=== PATIENT | female | born 1950 | race Caucasian/White ===

== ENCOUNTER 2017-01-31 05:02 | Inpatient (IN) | payer OTHER ==
[2017-01-24 12:14] LABS: HEMOGLOBIN 15.2 gm/dL (12.0-15.0); MCH 31.4 pg (26.0-34.0); MCHC 34.4 g/dL (28.0-37.0); MCV 91.3 fL (80.0-100.0); RBC 4.82 mil/uL (4.20-5.00); RDW 13.4 % (10.5-14.5); URINE BILIRUBIN NEGATIVE (Negative); URINE BLOOD NEGATIVE (Negative); URINE COLOR YELLOW; URINE GLUCOSE-RANDOM* NEGATIVE (Negative); URINE KETONES NEGATIVE (Negative); URINE LEUKOCYTES-REFLEX NEGATIVE (Negative); URINE PROTEIN (DIPSTICK) NEGATIVE (Negative); URINE SPECIFIC GRAVITY 1.015 (1.003-1.035); URINE UROBILINOGEN 0.2 E.U./dl (0.2-1.0); WBC 9.2 thou/uL (4.0-11.0)
[2017-01-24 12:20] LABS: ALBUMIN 3.9 g/dL (3.4-5.0); CALCIUM 9.2 mg/dL (8.5-10.1); CREATININE 0.9 mg/dL (0.6-1.0); POTASSIUM 4.4 mmol/L (3.5-5.1)
[2017-01-24 12:24] LABS: INR 1.1; PROTIME 11.4 Seconds (9.3-11.4)
[2017-01-31] VITALS (7 sets, daily range): BP systolic 122–155; BP diastolic 60–103
[~2017-01-31] VITALS: Ht 160 cm; Wt 86.6 kg
--- NOTE | ~2017-01-31 | EKG ---
[address] [place] [address] ELECTROCARDIOGRAM REPORT Name: KHAICAMILLA Room #: PRE [facility]#: [id number] Admission: Attend Phys: Renny Garcia MD Discharge: Date of : 48 Report #: [id number] THIS REPORT FOR: //name// [facility] Test Date: 2017-01-24 Test Time: 12:00:22 Pat Name: CAMILLA RIDLEY Department: Room: Gender: F Political Science Chair: BERNA DENNEY : 1950 Requested By: Renny Garcia Order Number: [id number] MD: Sage Devlin Measurements Intervals [place] Rate: 66 P: 56 IL: 152 QRS: 93 QRSD: 153 T: -44 QT: 461 QTc: 484 Interpretive Statements Sinus rhythm Left bundle branch block No previous ECG available for comparison Electronically Signed On 01-25-2017 7:52:34 CDT by Sage Devlin [email or web address] <ELECTRONICALLY SIGNED> By: Sage Devlin MD, [facility] 01/25/17 0752 1200 [facility] Sage Devlin MD, FACC /EPI
[~2017-01-31 05:02] MED LIST: ALDACTONE25 MG PO; CARVEDILOL25 MG PO; CENTRUM SILVER1 EAC4 PO; CO Q-10100 MG PO; FISH OIL 1,001000 M2 PO; MULTIVITAMIN PACK PO; NORCO 5-325 TA1 EACH PO; OMEGA-3 + VITA1 EAC1 PO; PERCOCET PO; PRILOSEC 20 MG20 MG PO; SERTRALINE HCL50 MG PO; TRI-EST PO; TURMERIC500 M1 PO; VITAMIN C500 M1 PO; VOLTAREN GEL 1100 G2 TOP; XANAX 0.25 MG0.25 MG PO; XARELTO10 MG PO; ZESTRIL40 MG PO; [UNRECOGNIZED DRUG - OTHER] PO
[2017-02-01 04:00] VITALS: BP 113/58
[2017-02-01 05:58] LABS: HEMATOCRIT 32.4 % (37.0-47.0); HEMOGLOBIN 11.2 gm/dL (12.0-15.0); MCH 31.2 pg (26.0-34.0); MCHC 34.6 g/dL (28.0-37.0); MCV 90.2 fL (80.0-100.0); RBC 3.59 mil/uL (4.20-5.00); RDW 13.1 % (10.5-14.5); WBC 18.4 thou/uL (4.0-11.0)
[2017-02-01 07:15] VITALS: BP 118/51
[2017-02-01 13:21] VITALS: BP 118/51
== END 2017-02-01 14:08 | disposition home or self-care (01) | DRG 470 ==
LOC: 5S 05:02 → TBA 06:56 → 5S 12:37 → 3N 16:16
PROVIDERS: Orthopaedic Surgery
PROC: 0SRD0JZ Replacement of Left Knee Joint with Synthetic Substitute, Open Approach (ICD-10-PCS; principal; 2017-01-31)
DX: M17.12 Unilateral primary osteoarthritis, left knee (principal); K21.9 Gastro-esophageal reflux disease without esophagitis; F32.9 Major depressive disorder, single episode, unspecified; I11.0 Hypertensive heart disease with heart failure; I50.9 Heart failure, unspecified; Z96.641 Presence of right artificial hip joint; E78.5 Hyperlipidemia, unspecified; E66.9 Obesity, unspecified; Z68.33 Body mass index [BMI] 33.0-33.9, adult; Z85.828 Personal history of other malignant neoplasm of skin; Z90.49 Acquired absence of other specified parts of digestive tract; Z90.710 Acquired absence of both cervix and uterus; Z88.0 Allergy status to penicillin
CPT/HCPCS: 10795; 50010; 50101; 50415; 50954; 51130; 51225; 51771; 53000; 53078; 53364; 54118; 56524; 56527; 56528; 57095; 62110; 62900; 64043; 65060; 70005

== ENCOUNTER → 2017-02-10 | Outpatient (CLI) | payer OTHER | LOC: ULTRA 14:46 | DX: M25.462 Effusion, left knee (principal); M79.89 Other specified soft tissue disorders ==

== ENCOUNTER 2019-08-29 08:01 | Inpatient (IN) | payer OTHER ==
[2019-08-15 12:46] LABS: URINE BILIRUBIN NEGATIVE (Negative); URINE BLOOD NEGATIVE (Negative); URINE CLARITY CLEAR; URINE COLOR YELLOW; URINE GLUCOSE-RANDOM* NEGATIVE (Negative); URINE KETONES NEGATIVE (Negative); URINE NITRITE-REFLEX NEGATIVE (Negative); URINE PROTEIN (DIPSTICK) NEGATIVE (Negative); URINE SPECIFIC GRAVITY 1.015 (1.005-1.035); URINE UROBILINOGEN 0.2 E.U./dl (0.2-1.0)
[2019-08-15 12:50] LABS: URINE LEUKOCYTES-REFLEX 1+ (Negative)
[2019-08-15 12:55] LABS: INR 1.1; PROTIME 11.4 Seconds (9.3-11.4)
[2019-08-15 13:05] LABS: CALCIUM 9.8 mg/dL (8.5-10.1); CREATININE 0.8 mg/dL (0.6-1.0)
[2019-08-15 13:08] LABS: BACTERIA-REFLEX 1-9 Few /HPF (None Seen); CASTS None Seen /LPF (None Seen); CRYSTALS None Seen /LPF (None Seen); SQUAMOUS None Seen /LPF (0-3); URINE RBC None Seen /HPF (0-2); URINE WBC-REFLEX 6-15 Few /HPF (0-5)
[2019-08-15 13:45] LABS: HEMATOCRIT 44.2 % (37.0-47.0); HEMOGLOBIN 14.7 gm/dL (12.0-15.0); MCH 30.4 pg (26.0-34.0); MCHC 33.2 g/dL (28.0-37.0); MCV 91.5 fL (80.0-100.0); RBC 4.83 mil/uL (4.20-5.00); RDW 13.8 % (10.5-14.5); WBC 8.3 thou/uL (4.0-11.0)
[~2019-08-29] VITALS: Ht 160 cm; Wt 86.6 kg
[~2019-08-29 08:01] MED LIST changes: +ENTRESTO 97 MG1 EACH PO; +FISH OIL 1,0001 EAC9 PO; +OMEPRAZOLE 20 M20 M1 PO; +SPIRONOLACTONE25 MG PO; +TORSEMIDE20 MG PO
[2019-08-29 11:08] VITALS: BP 143/82
[2019-08-29 20:30] VITALS: BP 132/66
[2019-08-29 21:00] VITALS: BP 120/60
[2019-08-29 21:30] VITALS: BP 126/62
[2019-08-29 22:00] VITALS: BP 120/65
[2019-08-29 23:00] VITALS: BP 126/62
[2019-08-30 04:00] VITALS: BP 123/69
[2019-08-30 06:10] LABS: HEMATOCRIT 41.5 % (37.0-47.0); HEMOGLOBIN 13.8 gm/dL (12.0-15.0); MCH 30.3 pg (26.0-34.0); MCHC 33.4 g/dL (28.0-37.0); MCV 90.7 fL (80.0-100.0); RBC 4.57 mil/uL (4.20-5.00); RDW 13.5 % (10.5-14.5); WBC 18.1 thou/uL (4.0-11.0)
[2019-08-30 08:00] VITALS: BP 127/63
[2019-08-30] MEDS ORDERED: ASPIR 8181 MG PO (13:43)
[2019-08-30] MEDS ORDERED: NEURONTIN 300300 M1 PO (13:43)
[2019-08-30 13:53] VITALS: BP 127/63
--- NOTE | 2019-09-03 16:06 | O ---
[facility] [address] [place] [address] OPERATIVE REPORT Name: CAMILLA RIDLEY Room #: 446-P [facility] IN M.R.#: [id number] Admission: 08/29/19 Attend Phys: Renny Garcia MD Discharge: 08/30/19 Date of : 48 Report #: [id number] THIS REPORT FOR: //name// CC: INOCENTE physician/PCP Renny Garcia DATE OF SERVICE: 08/29/2019 PREOPERATIVE DIAGNOSIS: Right knee osteoarthritis. POSTOPERATIVE DIAGNOSIS: Right knee osteoarthritis. PROCEDURE: Right total knee arthroplasty with Navio robotic assistance. SURGEON: Renny Garcia MD IT HELP DESK MANAGER: Shelly Obrien PA-C. INDICATIONS FOR IT HELP DESK MANAGER: Throughout the case, extensive retraction and manipulation of the knee was required. This was afforded to me by my assistant store director. ANESTHESIA: LMA with an adductor canal block. IMPLANTS: [employer]hew size 5 narrow cobalt chrome Legion posterior stabilized femur, size 3 tibia, size 11 constrained polyethylene, size 29 patella. TOURNIQUET TIME: 54 minutes. ESTIMATED BLOOD LOSS: 25 mL. COMPLICATIONS: None. SPECIMENS: None. CONDITION UPON LEAVING THE OPERATING ROOM: Stable. INDICATIONS FOR PROCEDURE: The patient is a 69-year-old female with right knee osteoarthritis. She had failed conservative measures for this and after discussion with her, she elected for right total knee arthroplasty. DESCRIPTION OF PROCEDURE: Risks, benefits, alternatives, complications were discussed in detail with the patient including but not limited to risk of anesthesia, risk of damage to nerves, arteries, blood vessels, risk for infection, bleeding, risk for continued knee pain, need for reoperation. Informed consent was obtained from the patient. Right knee was appropriately [facility] [address] [place] [address] OPERATIVE REPORT Name: CAMILLA RIDLEY Room #: 446-P [facility] IN M.R.#: [id number] Admission: 08/29/19 Attend Phys: Renny Garcia MD Discharge: 08/30/19 Date of : 48 Report #: [id number] marked in the preoperative holding area. IV clindamycin was given for preoperative antibiotics. She was brought to the operating room and placed in supine position on operating room table. LMA anesthesia was induced without complication. Tourniquet was placed on the right thigh. Right lower extremity was prepped and draped in normal sterile fashion. Timeout was performed properly identifying the patient and procedure as well as the instrumentation and implants. All in the operating room were in agreement. Right lower extremity was exsanguinated, tourniquet was inflated. Tourniquet time was 54 minutes. Standard midline approach to knee was made with 10 blade through the skin. Dissection was taken down sharply to the fascia with a 10 blade and deep flaps were developed medially and laterally. Fresh 10 blade was used to make a medial parapatellar arthrotomy and the knee was inspected. There was severe tricompartment osteoarthritis. ACL and PCL were removed sharply. Reference pins were placed in the femur and the tibia and the knee was then digitally mapped using the [employer] robotic system. Intraoperative plan was made and we sized the size 5 femur with a size 3 tibia and 11 spacer. After acceptance of the intraoperative plan, the distal femoral cut was made with a Navio tk. The 4 in 1 size 5 femoral cutting block was then placed. Anterior, posterior and chamfer cuts were made. Attention was then turned to the tibia and remainder of the menisci removed with Bovie cautery. The tibial resection guide was pinned in place and tibial resection was made. Flexion and extension gaps were then checked and found to have good balance in flexion and extension both medially and laterally. Tibia was sized, found to be a size 3. Size 3 tibial trial was placed, pinned and punched. Size 5 femoral trial was placed and the box cut was made. This was incised and trialed with a size 10 and then a size 11 polyethylene. Knee was taken through range of motion and found to have 2-3 mm of laxity in extension medially and 2-3 mm of laxity laterally in flexion. It was decided that we could make up for this with a constrained implant. A 9 mm was then resected from the posterior surface of the patella and a size 29 patellar trial button was placed. Knee was taken through range of motion, found to be stable, found to have good patellar tracking. After this, trial components were removed. Bony ends were thoroughly irrigated with normal saline. Final size 3 tibia, size 5 narrow Legion cobalt chrome posterior stabilized femur and a size 29 patella were cemented in place using standard cementation techniques. While the cement cured, a periarticular injection consisting of morphine, ropivacaine, epinephrine, Toradol was placed around the knee joint capsule. After the cement cured, the tourniquet was deflated. Hemostasis was obtained with Bovie cautery. Final size 11 constrained polyethylene was placed. A gram of vancomycin was placed deep in the joint. Fascia was closed with 0 Vicryl, skin was closed with 2-0 Vicryl, skin staple and a JOCELYN dressing was applied. The patient tolerated this procedure well and went to recovery room under care of anesthesia postoperatively. <ELECTRONICALLY SIGNED> By: Renny Garcia MD 09/03/19 1606 [id number] Renny Garcia MD /nt
== END 2019-08-30 14:43 | disposition home or self-care (01) | DRG 470 ==
LOC: PRE 08:01 → 4S 10:42 → TBA 10:42 → PRE 12:06 → 4S 16:46 → PRE 18:45 → 4S 08-30 14:43
PROVIDERS: ADMIT Orthopaedic Surgery
PROC: 8E0Y0CZ Robotic Assisted Procedure of Lower Extremity, Open Approach (ICD-10-PCS; principal; 2019-08-29)
PROC: 0SRC0J9 Replacement of Right Knee Joint with Synthetic Substitute, Cemented, Open Approach (ICD-10-PCS; principal; 2019-08-29)
DX: M17.11 Unilateral primary osteoarthritis, right knee (principal); F41.9 Anxiety disorder, unspecified; F32.9 Major depressive disorder, single episode, unspecified; I10 Essential (primary) hypertension; C44.90 Unspecified malignant neoplasm of skin, unspecified; Z90.49 Acquired absence of other specified parts of digestive tract; Z90.710 Acquired absence of both cervix and uterus; Z79.82 Long term (current) use of aspirin; Z79.899 Other long term (current) drug therapy; Z88.0 Allergy status to penicillin
CPT/HCPCS: 10102; 50010; 50101; 50415; 50954; 51130; 51225; 51320; 51412; 52001; 52282; 53000; 53078; 53364; 56527; 56528; 57095; 57103; 57110; 57127; 62110; 62900; 70005